=== PATIENT | male | born 1990 | race Caucasian/White ===

== ENCOUNTER 2017-06-04 12:40 | Outpatient (CLI) | payer BC ==
--- NOTE | 2017-06-04 18:45 | MRI ---
MR OF THE RIGHT KNEE WITHOUT CONTRAST 06/04/17 INDICATION: Right knee pain and swelling after twisting injury six days ago. Patient did have two prior surgeries in 2010 and 2011 of the right knee from arthroscopies. FINDINGS: There is prominent joint effusion. There is some mild edema overlying the MCL as well as portions of the proximal fibular collateral ligament suspicious for grade I sprains. The ACL and PCL appear intac t. The extensor mechanism is intact. There is severe chondrosis affecting the lateral femoral tibial joint compartment with a 1.2 x 2 cm near full thickness defect involving the posterior and medial asp ect of the lateral femoral condyle. There is prominent degenerative fraying involving the body and po sterior horn of the lateral meniscus with a more horizontally oriented tear involving the posterior h orn of the lateral meniscus. The medial meniscus appears intact. There is small marginal osteophytes affecting the lateral femorotibial compartment. Articular cartilage of the patellofemoral compartment appears preserved. IMPRESSION: 1. Early osteoarthritic changes of the lateral femorotibial joint compartment of the right knee with a new full thickness defect involving the lateral femoral condyle. 2. Degenerative fraying with associated tear involving the lateral meniscus. 3. Grade I sprains suspected involving the MCL and LCL. The ACL, PCL, and extensor mechanism is intact. 4. Prominent joint effusion. POS: [facility]
== END 2017-06-04 12:41 | disposition home or self-care (01) ==
LOC: SCSMRI 12:40
PROVIDERS: ATTEND Orthopaedic Surgery
DX: M25.561 Pain in right knee (principal); M17.11 Unilateral primary osteoarthritis, right knee; M25.461 Effusion, right knee; S83.281A Other tear of lateral meniscus, current injury, right knee, initial encounter